=== PATIENT | female | born 1965 | race Caucasian/White ===

== ENCOUNTER 2017-05-14 03:22 | Emergency (ER) | payer BC ==
[2017-05-14 03:58] LABS: BASOPHILS # (AUTO) 0.1 10^3/uL (0.0-0.1); BASOPHILS % (AUTO) 0.9 %; EOSINOPHILS # (AUTO) 0.2 10^3/uL (0.0-0.7); EOSINOPHILS % (AUTO) 3.4 %; HGB - HEMOGLOBIN 12.9 g/dL (12.0-16.0); MEAN CORPUSCULAR HEMOGLOBIN 27.9 pg (27.0-31.0); MEAN CORPUSCULAR HGB CONC 33.3 g/dL (32.0-36.0); MEAN CORPUSCULAR VOLUME 83.9 fL (81.0-99.0); MEAN PLATELET VOLUME 9.3 fL (7.9-10.8); MONOCYTES # (AUTO) 0.7 10^3/uL (0.0-1.0); NEUTROPHILS # (AUTO) 3.1 10^3/uL (1.5-6.6); NEUTROPHILS % (AUTO) 50.7 %; PLT - PLATELET COUNT 185 10^3/uL (130-450); RED BLOOD COUNT 4.63 10^6/uL (4.20-5.40); RED CELL DISTRIBUTION WIDTH 12.3 % (12.0-15.0)
[2017-05-14 04:10] LABS: ALBUMIN 3.9 g/dL (3.2-5.5); ALBUMIN/GLOBULIN RATIO 1.2 (1.0-2.2); BILIRUBIN,TOTAL 0.2 mg/dL (0.2-1.0); CALCIUM 9.4 mg/dL (8.5-10.3); CREATININE 0.6 mg/dL (0.4-1.0); TOTAL PROTEIN 7.1 g/dL (6.7-8.2)
[2017-05-14 04:36] VITALS: BP 157/83
--- NOTE | 2017-05-14 04:45 | ED Physician Documentation ---
PD HPI CHEST PAIN - Stated complaint Stated Complaint: BACK PAIN - Chief complaint Chief Complaint: Back Pain - History obtained from History obtained from: Patient - History of Present Illness Timing - onset: How many hours ago (8) Timing - onset during: Rest Timing - details: Intermittant Quality: Aching, Sharp Location: Left chest Radiation: Back Associated symptoms: Palpitations. No: Shortness of air, Diaphoresis Similar symptoms before: Has not had sx before Recently seen: Clinic - Additional information Additional information: patient is a 51 year old female who is recently diagnosed with graves disease. patient is out here on a school trip and when she was hiking with students patient states that she felt like her heart was pounding. Patient reports that this evening sometime after dinner patient developed a left sided pain in her back. Upon initial evaluation patient was tearful and worried that she was going to have a heart attack due to her new diagnosis. Review of Systems Constitutional: denies: Fever, Chills Eyes: reports: Reviewed and negative Ears: reports: Reviewed and negative Nose: reports: Reviewed and negative Throat: reports: Reviewed and negative Cardiac: reports: Chest pain / pressure, Palpitations Respiratory: denies: Dyspnea, Cough, Wheezing GI: denies: Nausea, Vomiting : reports: Reviewed and negative Musculoskeletal: denies: Neck pain, Back pain, Extremity swelling Neurologic: denies: Generalized weakness, Focal weakness Immunocompromised: denies: Immunocompromised PD PAST MEDICAL HISTORY - Past Medical History Past Medical History: Yes Other Past Medical History: Recently DX w/ Hyperthyroidism 05/10/17 - Past Surgical History Past Surgical History: Yes General: Appendectomy /[employer]: Other - Present Medications Home Medications: Ambulatory Orders Medication Instructions Recorded Confirmed Atenolol 1 tab PO DAILY 05/14/17 05/14/17 PARoxetine [Paxil] 10 mg PO DAILY 05/14/17 05/14/17 hydroCHLOROthiazide [Hydrodiuril] 12.5 mg PO DAILY 05/14/17 05/14/17 methIMAzole [Methimazole] 5 mg PO DAILY 05/14/17 05/14/17 - Allergies Allergies/Adverse Reactions: Allergies Allergy/AdvReac Type Severity Reaction Status Date / Time Sulfa (Sulfonamide Allergy Rash Verified 05/14/17 03:52 Antibiotics) - Social History Does the pt smoke?: No Smoking Status: Never smoker Does the pt drink ETOH?: Yes ETOH Use: Wine Does the pt have substance abuse?: No - Immunizations Immunizations are current?: Yes - POLST Patient has POLST: No PD ED PE NORMAL - Vitals Vital signs reviewed: Yes - General General: Alert and oriented X 3 - HEENT HEENT: Atraumatic, PERRL, Moist mucous membranes - Neck Neck: Supple, no meningeal sign - Cardiac Cardiac: RRR, No murmur - Respiratory Respiratory: No respiratory distress - Abdomen Abdomen: Soft, Non tender, Non distended - Derm Derm: Normal color, No rash - Extremities Extremities: No deformity, No edema - Neuro Neuro: Alert and oriented X 3, No motor deficit, Normal speech Eye Opening: Spontaneous Motor: Obeys Commands PD ED PE EXPANDED - General General: Alert, Anxious Results - Vitals Vitals: Vital Signs - 24 hr 05/14/17 05/14/17 03:25 04:34 Temperature 36.3 C L 36.5 C Heart Rate 83 65 Respiratory 16 16 Rate Blood Pressure 147/84 H 157/83 H O2 Saturation 100 99 Oxygen O2 Source Room air - EKG (time done) 0344 Rate: Rate (enter#) (66) Rhythm: NSR [place]: Normal Intervals: Normal CT QRS: Normal Ischemia: Normal ST segments Compare to prior EKG: Old EKG unavailable - Labs Labs: Laboratory Tests 05/14/17 05/14/17 05/14/17 03:50 03:50 03:50 WBC 6.0 RBC 4.63 Hgb 12.9 Hct 38.9 MCV 83.9 MCH 27.9 MCHC 33.3 RDW 12.3 Plt Count 185 MPV 9.3 Neut # 3.1 Lymph # 2.0 [place] # 0.7 Eos # 0.2 Baso # 0.1 Absolute Nucleated RBC 0.01 Nucleated RBC % 0.2 Sodium 136 Potassium 3.4 L Chloride 99 L Carbon Dioxide 27 Anion Gap 10.0 BUN 18 Creatinine 0.6 Estimated GFR (MDRD) 106 Glucose 118 H Calcium 9.4 Total Bilirubin 0.2 AST 58 H ALT 56 Alkaline Phosphatase 93 Troponin I < 0.04 Total Protein 7.1 Albumin 3.9 Globulin 3.2 Albumin/Globulin Ratio 1.2 Lipase 29 PD MEDICAL DECISION MAKING - ED course Complexity details: reviewed old records, reviewed results, re-evaluated patient , considered differential, d/w patient ED course: Patient was seen and examined at bedside. Patient was anxious but otherwise in no distress. ekg was performed and was normal sinus. labs were drawn and patient's diagnostics were within normal limits. Patient had a HEART score of 2 and required no further inpatient testing. Patient was made aware of the findings and the plan. Patient was given detailed discharge and follow up instructions as well as ample time to ask and answer questions. Patient required no further work up and was stable for discharge with outpatient follow up. Departure - Departure Disposition: 01 Home, Self Care Clinical Impression: Atypical chest pain Condition: Good Instructions: ED Chest Pain NonCardiac Follow-Up: Provider,Other [Primary Care Provider] - Within 3 Days Comments: Your diagnostics today were within normal limits. It is less likely that your pain is cardiac in nature. that being said this is only a snapshot in time. It is important that you follow up with your doctor for an echocardiogram and a stress test. If you develop chest pain or new shortness of breath with exertion you should stop the activity and follow up with your doctor. If you feel like your heart is racing you should should take deep breaths and check your pulse. You may return to the emergency department at any time for new, worsening or uncontrollable symptoms. Discharge Date/Time: 05/14/17 04:47
== END 2017-05-14 04:47 | disposition home or self-care (01) ==
LOC: ED 03:22
DX: R07.89 Other chest pain (principal); E05.00 Thyrotoxicosis with diffuse goiter without thyrotoxic crisis or storm
CPT/HCPCS: 36415; 80053; 83690; 84484; 85025; 93005; 99283; 99284